=== PATIENT | male | born 1995 | race Two or more races ===

== ENCOUNTER 2017-05-20 12:15 | Emergency (ER) | payer SELFPAY ==
[2017-05-20 12:32] VITALS: BP 135/75
[2017-05-20] MEDS ORDERED: ONDANSETRON 4 MG TAB.RAPDIS PO ONE (13:01)
[2017-05-20] MEDS ORDERED: DICYCLOMINE HCL 10 MG CAPSULE PO ONE (13:01)
--- NOTE | 2017-05-20 13:07 | ER Document Report ---
ED General - General Chief Complaint: Vomiting Stated Complaint: VOMITING,BACK PAIN, ABDOMINAL PAIN Time Seen by Provider: 05/20/17 12:55 Notes: 21-year-old male here with complaints of nausea and decreased appetite over the past 1 week and today started vomiting. He has also had some intermittent abdominal cramping and pain under his left shoulder blade however does not have any at this time. He states that this morning he started vomiting immediately after eating some grilled chicken. No one else ate the chicken. No known sick contacts. Has not tried taking anything for the symptoms. TRAVEL OUTSIDE OF THE [place] IN LAST 30 DAYS: No - Related Data Allergies/Adverse Reactions: No Known Allergies Allergy (Unverified 05/20/17 12:19) Past Medical History - Social History Smoking Status: Current Every Day Smoker Chew tobacco use (# tins/day): No Frequency of alcohol use: Social Drug Abuse: Marijuana Family History: None Patient has suicidal ideation: No Patient has homicidal ideation: No Renal/ Medical History: Denies: Hx Peritoneal Dialysis Review of Systems - Review of Systems Notes: See history of present illness for pertinent positive review of systems; otherwise all review of systems have been reviewed and are negative Physical Exam - Vital signs Vitals: Temp Pulse Resp BP Pulse Ox 98.1 F 100 18 135/75 H 100 05/20/17 12:30 05/20/17 12:30 05/20/17 12:30 05/20/17 12:30 05/20/17 12:30 - Notes Notes: PHYSICAL EXAMINATION: GENERAL: Well-appearing and in no acute distress. HEAD: Atraumatic, normocephalic. EYES: Pupils equal round and reactive to light, extraocular movements intact, sclera anicteric, conjunctiva are normal. ENT: nares patent, oropharynx clear without exudates. Moist mucous membranes. NECK: Normal range of motion, supple without lymphadenopathy LUNGS: CTAB and equal. No wheezes rales or rhonchi. HEART: Regular rate and rhythm without murmurs ABDOMEN: Soft, no tenderness. No facial grimacing/wincing upon palpation. No guarding, no rebound. EXTREMITIES: Normal range of motion, no pitting edema. No cyanosis. NEUROLOGICAL: Cranial nerves grossly intact. Normal sensory/motor exams. PSYCH: Normal mood, normal affect. SKIN: Warm, Dry, normal turgor, no rashes or lesions noted Course - Re-evaluation Re-evalutation: 05/20/17 13:03 MEDICAL DECISION MAKING: Concern for gastrointestinal infection, most likely viral He has no abdominal tenderness on my exam Dose of Zofran and Bentyl here and prescription same Instructed patient on fever control with Tylenol and/or (if applicable) Motrin Also discussed keeping hydrated with water or Gatorade/Pedialyte Instructed follow-up PCP next day or few Patient understands and agrees to the plan of care - Vital Signs Vital signs: Temp Pulse Resp BP Pulse Ox 98.1 F 100 18 135/75 H 100 05/20/17 12:30 05/20/17 12:30 05/20/17 12:30 05/20/17 12:30 05/20/17 12:30 Discharge - Discharge Clinical Impression: Nausea & vomiting Qualifiers: Vomiting type: unspecified Vomiting Intractability: non-intractable Qualified Code(s): R11.2 - Nausea with vomiting, unspecified Condition: Good Disposition: HOME, SELF-CARE Additional Instructions: You likely have a viral syndrome. Use the prescribed medication as needed for your symptoms. You were seen in the emergency department at [facility]. If you were given any sedating medications, be sure not to operate heavy machinery (example - driving) and be sure you are not too sedated to walk appropriately. Please followup with your primary physician in the next few days for further management/evaluation. Please return to the emergency department for worsening of symptoms or any symptom that you deem to be concerning or life-threatening. Thank you for allowing us to be part of your care. This documentation serves as your school/work note for your emergency department visit today. Prescriptions: Ondansetron [Zofran Odt 4 mg Tablet] 1 tab PO Q4HP PRN #10 tab.rapdis PRN Reason: Dicyclomine HCl [Bentyl 10 mg Capsule] 1 cap PO TID #30 cap
== END 2017-05-20 13:09 | disposition home or self-care (01) ==
LOC: ER 12:15
DX: R11.2 Nausea with vomiting, unspecified (principal); M54.9 Dorsalgia, unspecified; R10.9 Unspecified abdominal pain; F17.200 Nicotine dependence, unspecified, uncomplicated
CPT/HCPCS: 99283; J3490; S0119